=== PATIENT | male | born 1990 | race Caucasian/White ===

== ENCOUNTER 2021-11-06 07:40 | Emergency (ER) | payer SELFPAY ==
[2021-11-06] MEDS ORDERED: Tetracaine HCl/PF 0.5% 4 ML Bottle EYELF ONE (07:57)
[2021-11-06] MEDS ORDERED: Polyvinyl Alcohol 1.4% Ophth Soln 15 ML Bottle EYELF PRN (08:06)
[2021-11-06] MEDS ORDERED: Erythromycin Base 0.5% Ophth Oint 3.5 GM Tube EYEBOTH ONE (08:07)
== END 2021-11-06 08:15 | disposition home or self-care (01) ==
LOC: CC.ED 07:40
DX: H18.892 Other specified disorders of cornea, left eye (principal)
CPT/HCPCS: 99283; A9270-GY